=== PATIENT | male | born 1940 | race Two or more races ===

== ENCOUNTER 2019-01-22 23:47 | Inpatient (IN) | payer OTHER ==
[~2019-01-22] VITALS: Ht 180.3 cm; Wt 74.8 kg
[2019-01-23] MEDS ORDERED: FORTAMET500 MG (00:24)
[2019-01-23] MEDS ORDERED: ALDACTAZIDE 251 EACH (00:24)
[2019-01-23] MEDS ORDERED: AVAPRO75 MG (00:25)
--- NOTE | 2019-01-23 00:36 | NUR ---
SE RECIBE PTE ALERTA Y ORIENTADO POR MAYRA. PTE REFIERE PRESENTAR TOS,DIFICULTAD RESPIRATORIA Y DEBILIDAD DESDE LAS 6:00PM. SE OBSERVA A PTE CON RESPIRACIONES ABDOMINALES ACELERADAS, CON NIVELES DE AZUCAR HARESH, FIEBRE, Y B/P BAJA. SE LE RELIZA A PTE EKG Y SE LE PRESENTA A DR. MATTHEWS. SE COLOCA A PTE EN HIMANSHU CON BARANDAS ELEVADAS Y CONECTADO A MONITOR CARDIACO Y OXIMETRIA DE PULSO.
--- NOTE | 2019-01-23 01:00 | NUR ---
PACIENTE ALERTA Y ORIENTADO POR MAYRA ESFERAS. MS. ZHANG ORIENTA A PACIENTE SOBRE PROCEDIMEINTO Y TX, REFIERE ENTENDER. EXTRAE MUESTRAS DE LABORATOIRO CON MEDIDS ASEPTICAS Y ADMINISTRA MEDICAMENTOS ALISHA ORDEN MEDICA. SE NOTIFICA A MR. HILARIO ABG'S Y TERAPIAS RESPIRATORIA.
--- NOTE | 2019-01-23 05:00 | NUR ---
SE RECIBE PTE ALERTA Y ORIENTADO EN LAS 3 ESFERAS EN CAMA CON BARANDAS ELEVADAS POR SEGURIDAD A LA UNIDAD DE DOLOR DE PECHO. SE CONECTA A PTE EN MONITOR CARDIACO Y OXIMETRIA DE PULSO. ASISTIDO POR UN VENTURY AL 50%. IV'S 0.45NACL BAJANDO A 100ML/HR, DOPAMINA 400MCG/D5W 250ML BAJANDO A 5ML/HR Y TRIDIL 50MG/250ML BAJANDO A 1ML/HR POR VENOPUNCION EN BRAZO ZAHIRA, LAS CUALES SE ENCUENTRAN CARROLL DE EDEMA Y ERITEMA. SE REALIZA EKG Y SE PRENSENT A . SE MIDEN SIGNOS VITALES Y SE REPORTAN. SE JOSE ANTONIO A PTE EN CAMA CON BARANDAS ELEVADAS Y SE MANTIENE EN OBSERVACION POR CAMBIOS.
--- NOTE | 2019-01-23 08:19 | NUR ---
SE RECIBE PTE ALERTA Y ORIENTADO EN LAS 3 ESFERAS EN CAMA CON BARANDAS ELEVADAS POR SEGURIDAD A LA UNIDAD DE DOLOR DE PECHO. SE CONECTA A PTE EN MONITOR CARDIACO Y OXIMETRIA DE PULSO. ASISTIDO POR UN VENTURY AL 50%. IV'S 0.45NACL BAJANDO A 100ML/HR, DOPAMINA 400MCG/D5W 250ML BAJANDO A 5ML/HR Y TRIDIL 50MG/250ML BAJANDO A 1ML/HR POR VENOPUNCION EN BRAZO ZAHIRA, LAS CUALES SE ENCUENTRAN CARROLL DE EDEMA Y ERITEMA. SE MIDEN SIGNOS VITALES Y SE REPORTAN. SE JOSE ANTONIO A PTE EN CAMA CON BARANDAS ELEVADAS Y SE MANTIENE EN OBSERVACION POR CAMBIOS
== END 2019-02-05 14:09 | disposition designated cancer center or children's hospital (05) | DRG 280 ==
LOC: ER 23:47 → ICU-2 01-23 08:33 → ICU 01-26 22:23 → MEDJ 01-29 15:03 → MEDI 01-29 15:03 → MEDJ 02-01 11:52
PROVIDERS: ADMIT Student in an Organized Health Care Education/Training Program
PROC: 4A033R1 Measurement of Arterial Saturation, Peripheral, Percutaneous Approach (ICD-10-PCS; principal; 2019-01-23)
PROC: 3E0F7GC Introduction of Other Therapeutic Substance into Respiratory Tract, Via Natural or Artificial Opening (ICD-10-PCS; 2019-01-23)
PROC: B246ZZZ Ultrasonography of Right and Left Heart (ICD-10-PCS; 2019-01-23)
PROC: 0BH17EZ Insertion of Endotracheal Airway into Trachea, Via Natural or Artificial Opening (ICD-10-PCS; 2019-01-25)
PROC: 5A1945Z Respiratory Ventilation, 24-96 Consecutive Hours (ICD-10-PCS; 2019-01-25)
PROC: BT43ZZZ Ultrasonography of Bilateral Kidneys (ICD-10-PCS; 2019-01-27)
PROC: 4A12X4Z Monitoring of Cardiac Electrical Activity, External Approach (ICD-10-PCS; 2019-01-29)
PROC: 02HV33Z Insertion of Infusion Device into Superior Vena Cava, Percutaneous Approach (ICD-10-PCS; 2019-01-31)
PROC: 4A12XM4 Monitoring of Cardiac Stress, External Approach (ICD-10-PCS; 2019-02-01)
PROC: 3E033HZ Introduction of Radioactive Substance into Peripheral Vein, Percutaneous Approach (ICD-10-PCS; 2019-02-01)
DX: I21.4 Non-ST elevation (NSTEMI) myocardial infarction (principal); I50.23 Acute on chronic systolic (congestive) heart failure; J16.8 Pneumonia due to other specified infectious organisms; J96.01 Acute respiratory failure with hypoxia; R65.21 Severe sepsis with septic shock; N17.8 Other acute kidney failure; N39.0 Urinary tract infection, site not specified; I13.0 Hypertensive heart and chronic kidney disease with heart failure and stage 1 through stage 4 chronic kidney disease, or unspecified chronic kidney disease; E11.65 Type 2 diabetes mellitus with hyperglycemia; N18.9 Chronic kidney disease, unspecified; Z66 Do not resuscitate

== ENCOUNTER 2024-04-30 14:37 | Inpatient (IN) | payer OTHER ==
[~2024-04-30] VITALS: Ht 180.3 cm; Wt 73.5 kg
[~2024-04-30 14:37] MED LIST: ALDACTAZIDE 251 EACH; AVAPRO75 MG; FORTAMET500 MG
[2024-04-30] MEDS ORDERED: LEVOTHYROXINE25 MCG PO (15:39)
[2024-04-30] MEDS ORDERED: 0.9 % SODIUM CHLORIDE 500 ML IV ONE (19:15)
[2024-04-30 19:49] LABS: HEMATOCRIT 35.7 % (39.0-48.0); MEAN CELL VOLUME 89.1 fL (80.0-100.00); MEAN CORPUSCULAR HEMOGLOBIN 29.9 pg (27.00-32.0); MEAN CORPUSCULAR HGB CONC 33.5 g/dl (32.0-36.0); PLATELET COUNT 161 K/uL (150-450); RED BLOOD COUNT 4.01 M/uL (4.00-6.00); RED CELL DISTRIBUTION WIDTH 14.7 % (11.5-14.5)
[2024-04-30 20:08] LABS: ALBUMIN 2.9 gm/dL (3.4-5.0); BILIRUBIN TOTAL 0.91 mg/dL (0.3-1.2); CALCIUM 8.4 mg/dL (8.5-10.1); CREATININE SERUM 1.52 mg/dL (0.70-1.30); GFR 44.02; GLOBULINA 4.8 G/DL (2.4-3.5); POTASSIUM 3.81 mEq/L (3.5-5.1); TOTAL PROTEIN 7.7 gm/dL (6.4-8.2)
[2024-04-30 23:10] LABS: URINE APPEARANCE Clear; URINE BILIRRUBIN Negative (NEGATIVE); URINE BLOOD Trace; URINE COLOR Yellow; URINE LEUKOCYTE Negative; URINE NITRATE Negative; URINE PROTEIN Negative (NEGATIVE); URINE UROBILINOGEN 0.2 E.U./dl
[2024-04-30 23:11] LABS: URINE BACTERIA 32.7 uL (0.0-1933); URINE EPITHELIAL CELLS 8.6 uL (0.0-38.8); URINE RBC 6.5 uL (0.0-20.8); URINE WBC 8.8 uL (0.0-23.2)
[2024-04-30 23:13] LABS: URINE GLUCOSE >=1000 MG/DL (NEGATIVE)
[2024-05-01] MEDS ORDERED: CEFTRIAXONE SODIUM 2,000 MG VIAL IV ONE (01:15)
[2024-05-01] MEDS ORDERED: CEFTRIAXONE SODIUM 2,000 MG VIAL ONE (02:12)
[2024-05-01] MEDS ORDERED: CEFTRIAXONE SODIUM 2,000 MG in 0.9 % SODIUM CHLORIDE 100 ML IV SCH (16:09)
[2024-05-01] MEDS ORDERED: SODIUM CHLORIDE 0.45 % 1,000 ML IV SCH (16:15)
[2024-05-01] MEDS ORDERED: ATORVASTATIN CALCIUM 40 MG TABLET PO SCH (16:21)
[2024-05-01] MEDS ORDERED: ISOSORBIDE MONONITRATE 60 MG TABLET PO SCH (16:22)
[2024-05-01] MEDS ORDERED: FUROsemide 20 MG TABLET PO SCH (16:22)
[2024-05-01] MEDS ORDERED: TICAGRELOR 90 MG TABLET PO SCH (16:24)
[2024-05-01] MEDS ORDERED: INSULIN LISPRO 1,000 UNIT/10 ML UNITS SUBCUTANEO PRN (16:30)
[2024-05-01] MEDS ORDERED: DEXTROSE 50 % IN WATER 0.5 G/ML DISP.SYRIN IV PRN (16:30)
[2024-05-01] MEDS ORDERED: FAMOTIDINE/PF 20 MG in 0.9 % SODIUM CHLORIDE 100 ML IV SCH (17:00)
[2024-05-01 18:33] LABS: ABG PH 7.447 (7.35-7.45); ABG PO2 89.7 mmHg (80-100); ABG pCO2 32.2 mmHg (35-45); BASE EXCESS -1.4 mmol/l; BICARBONATE 21.7 mmol/l (23-25); SaO2 97.3 %; Tco2 22.7 mmol/l
[2024-05-01 18:34] LABS: allen test SATISFACTORY; o2 21 %; puncture site RADIAL RIGHT
[2024-05-01] MEDS ORDERED: FUROsemide 20 MG/2 ML VIAL ONE (19:20)
[2024-05-01] MEDS ORDERED: TICAGRELOR 90 MG TABLET PO ONE (19:20)
[2024-05-01] MEDS ORDERED: FAMOTIDINE/PF 20 MG/2 ML VIAL ONE (19:20)
[2024-05-01 19:41] LABS: INR 1.04; PARTIAL THROMBOPLASTIN TIME 28.5 SECONDS (22.0-34.0); PROTHROMBIN TIME 10.9 SECONDS (9.0-11.5)
[2024-05-01 19:48] LABS: BILIRUBIN TOTAL 0.77 mg/dL (0.3-1.2); BILIRUBIN,CONJUGATED 0.25 mg/dL (0.0-0.2); BILIRUBIN,UNCONJUGATED 0.52 mg/dL (0.0-0.6); CALCIUM 8.7 mg/dL (8.5-10.1); CREATININE SERUM 1.44 mg/dL (0.70-1.30); GFR 46.85; MAGNESIUM 2.2 mg/dL (1.8-2.4); PHOSPHOROUS 2.5 mg/dL (2.5-4.9); POTASSIUM 4.15 mEq/L (3.5-5.1)
[2024-05-01 20:39] LABS: C-REACTIVE PROTEIN 17.4 MG/DL (0.00-0.29); CKMB 7.6 NG/ML (0.5-3.6)
[2024-05-02] MEDS ORDERED: LEVOTHYROXINE SODIUM 25 MCG TABLET PO SCH (06:00)
[2024-05-02 09:38] LABS: HEMATOCRIT 40.6 % (39.0-48.0); HEMOGLOBIN 13.5 g/dL (13-16.00); MEAN CELL VOLUME 89.9 fL (80.0-100.00); MEAN CORPUSCULAR HEMOGLOBIN 29.9 pg (27.00-32.0); MEAN CORPUSCULAR HGB CONC 33.2 g/dl (32.0-36.0); PLATELET COUNT 62 K/uL (150-450); RED BLOOD COUNT 4.51 M/uL (4.00-6.00); RED CELL DISTRIBUTION WIDTH 14.6 % (11.5-14.5)
[2024-05-02 09:58] LABS: CALCIUM 8.1 mg/dL (8.5-10.1); CREATININE SERUM 1.05 mg/dL (0.70-1.30); GFR 67.45; POTASSIUM 4.42 mEq/L (3.5-5.1)
[2024-05-02] MEDS ORDERED: DEXTROSE 50 % IN WATER 0.5 G/ML VIAL IV PRN (17:15)
[2024-05-03 09:04] LABS: ABG PH 7.424 (7.35-7.45); ABG pCO2 32.6 mmHg (35-45); BASE EXCESS -2.6 mmol/l; BICARBONATE 20.8 mmol/l (23-25); SaO2 96.3 %; Tco2 21.8 mmol/l; allen test SATISFACTORY; o2 21 %; puncture site RADIAL LEFT
[2024-05-04 14:40] LABS: HEMATOCRIT 34.2 % (39.0-48.0); HEMOGLOBIN 11.7 g/dL (13-16.00); MEAN CELL VOLUME 87.3 fL (80.0-100.00); MEAN CORPUSCULAR HGB CONC 34.3 g/dl (32.0-36.0); PLATELET COUNT 161 K/uL (150-450); RED BLOOD COUNT 3.91 M/uL (4.00-6.00); RED CELL DISTRIBUTION WIDTH 14.3 % (11.5-14.5)
[2024-05-04 15:16] LABS: ALBUMIN 2.6 gm/dL (3.4-5.0); BILIRUBIN TOTAL 0.56 mg/dL (0.3-1.2); CALCIUM 7.7 mg/dL (8.5-10.1); CREATININE SERUM 1.26 mg/dL (0.70-1.30); GFR 54.66; GLOBULINA 4.3 G/DL (2.4-3.5); POTASSIUM 3.92 mEq/L (3.5-5.1); TOTAL PROTEIN 6.9 gm/dL (6.4-8.2)
[2024-05-04] MEDS ORDERED: FUROsemide 40 MG/4 ML VIAL IV STA (16:49)
[2024-05-04] MEDS ORDERED: IPRATROPIUM BROMIDE 0.5 MG/2.5 ML AMPUL.NEB IH SCH (17:00)
[2024-05-04] MEDS ORDERED: FAMOtidine 20 MG TABLET PO SCH (21:00)
[2024-05-05 07:43] LABS: HEMATOCRIT 32.3 % (39.0-48.0); HEMOGLOBIN 11.2 g/dL (13-16.00); MEAN CELL VOLUME 86.9 fL (80.0-100.00); MEAN CORPUSCULAR HGB CONC 34.5 g/dl (32.0-36.0); PLATELET COUNT 145 K/uL (150-450); RED BLOOD COUNT 3.72 M/uL (4.00-6.00); RED CELL DISTRIBUTION WIDTH 14.4 % (11.5-14.5)
[2024-05-05 08:30] LABS: ALBUMIN 2.4 gm/dL (3.4-5.0); BILIRUBIN TOTAL 0.48 mg/dL (0.3-1.2); CALCIUM 7.8 mg/dL (8.5-10.1); CREATININE SERUM 1.29 mg/dL (0.70-1.30); GFR 53.19; POTASSIUM 3.42 mEq/L (3.5-5.1); TOTAL PROTEIN 6.4 gm/dL (6.4-8.2)
[2024-05-05 10:39] LABS: ABG PH 7.445 (7.35-7.45); ABG PO2 107.7 mmHg (80-100); ABG pCO2 34.2 mmHg (35-45); BASE EXCESS -0.4 mmol/l; BICARBONATE 22.9 mmol/l (23-25); SaO2 98.4 %
[2024-05-05 10:40] LABS: allen test SATISFACTORY; o2 32 %; puncture site RADIAL RIGHT
[2024-05-05] MEDS ORDERED: FUROsemide 40 MG/4 ML VIAL IV SCH (17:00)
[2024-05-06] MEDS ORDERED: IPRATROPIUM BROMIDE 0.5 MG/2.5 ML AMPUL.NEB IH SCH (12:00)
[2024-05-08] MEDS ORDERED: MEROPENEM 500 MG/VIAL VIAL IV SCH (13:00)
[2024-05-08] MEDS ORDERED: VANCOMYCIN HCL 1,000 MG VIAL IV SCH (13:03)
[2024-05-08 21:14] LABS: HEMATOCRIT 32.5 % (39.0-48.0); HEMOGLOBIN 10.9 g/dL (13-16.00); MEAN CELL VOLUME 88.1 fL (80.0-100.00); MEAN CORPUSCULAR HEMOGLOBIN 29.7 pg (27.00-32.0); MEAN CORPUSCULAR HGB CONC 33.7 g/dl (32.0-36.0); PLATELET COUNT 155 K/uL (150-450); RED BLOOD COUNT 3.69 M/uL (4.00-6.00); RED CELL DISTRIBUTION WIDTH 14.5 % (11.5-14.5)
[2024-05-08 21:36] LABS: ALBUMIN 2.1 gm/dL (3.4-5.0); BILIRUBIN TOTAL 0.5 mg/dL (0.3-1.2); CALCIUM 7.7 mg/dL (8.5-10.1); CREATININE SERUM 1.39 mg/dL (0.70-1.30); GFR 48.8; POTASSIUM 3.92 mEq/L (3.5-5.1); TOTAL PROTEIN 6.1 gm/dL (6.4-8.2)
[2024-05-09 16:00] LABS: ABG PH 7.256 (7.35-7.45)
[2024-05-09 16:01] LABS: ABG PO2 100.5 mmHg (80-100); ABG pCO2 50.3 mmHg (35-45); BASE EXCESS -5.6 mmol/l; BICARBONATE 21.9 mmol/l (23-25); SaO2 96.3 %; Tco2 23.4 mmol/l; allen test SATISFACTORY; o2 50 %; puncture site RADIAL RIGHT
[2024-05-09] MEDS ORDERED: METHYLPREDNISOLONE SOD SUCC 40 MG VIAL IV SCH (17:00)
[2024-05-09] MEDS ORDERED: LEVALBUTEROL HCL 0.63 MG/3 ML SOLUTION IH SCH (17:00)
[2024-05-09 19:21] LABS: ABG PH 7.311 (7.35-7.45); ABG PO2 139.1 mmHg (80-100); ABG pCO2 46.8 mmHg (35-45); BASE EXCESS -3.4 mmol/l; BICARBONATE 23.1 mmol/l (23-25); SaO2 98.8 %; Tco2 24.5 mmol/l
[2024-05-09 19:22] LABS: allen test SATISFACTORY; o2 50 %; puncture site RADIAL RIGHT
[2024-05-09] MEDS ORDERED: FUROsemide 20 MG/2 ML VIAL IV SCH (21:00)
[2024-05-10 09:53] LABS: ABG PH 7.352 (7.35-7.45); ABG PO2 279.9 mmHg (80-100); ABG pCO2 39.3 mmHg (35-45); BASE EXCESS -3.9 mmol/l; BICARBONATE 21.3 mmol/l (23-25); SaO2 99.9 %; Tco2 22.5 mmol/l
[2024-05-10 11:49] LABS: o2 50 %
[2024-05-10 11:50] LABS: allen test SATISFACTORY; puncture site RADIAL RIGHT
[2024-05-10] MEDS ORDERED: MEROPENEM 500 MG/VIAL VIAL IV SCH (17:00)
[2024-05-10] MEDS ORDERED: FLUCONAZOLE IN NACL,ISO-OSM 100 ML IV SCH (17:00)
[2024-05-11 07:41] LABS: HEMATOCRIT 35.9 % (39.0-48.0); MEAN CELL VOLUME 87.5 fL (80.0-100.00); MEAN CORPUSCULAR HEMOGLOBIN 29.2 pg (27.00-32.0); MEAN CORPUSCULAR HGB CONC 33.4 g/dl (32.0-36.0); PLATELET COUNT 242 K/uL (150-450); RED CELL DISTRIBUTION WIDTH 14.9 % (11.5-14.5)
[2024-05-11 08:09] LABS: BILIRUBIN TOTAL 0.72 mg/dL (0.3-1.2); CALCIUM 8.2 mg/dL (8.5-10.1); CREATININE SERUM 1.86 mg/dL (0.70-1.30); GFR 34.87; GLOBULINA 4.5 G/DL (2.4-3.5); POTASSIUM 4.63 mEq/L (3.5-5.1); TOTAL PROTEIN 6.5 gm/dL (6.4-8.2)
[2024-05-11 11:15] LABS: ABG PH 7.373 (7.35-7.45); BICARBONATE 20.5 mmol/l (23-25); SaO2 99.6 %; Tco2 21.6 mmol/l
[2024-05-11 11:16] LABS: allen test SATISFACTORY; o2 50 %; puncture site RADIAL RIGHT
[2024-05-12 08:28] LABS: ABG PH 7.424 (7.35-7.45); ABG pCO2 36.9 mmHg (35-45); BASE EXCESS -0.3 mmol/l; BICARBONATE 23.6 mmol/l (23-25); SaO2 98.6 %; Tco2 24.8 mmol/l
[2024-05-12 08:46] LABS: allen test SATISFACTORY; o2 35 %; puncture site RADIAL RIGHT
[2024-05-12 15:20] LABS: CALCIUM 7.6 mg/dL (8.5-10.1); CHOL HDL RATIO 2.7 (0-5.0); CREATININE SERUM 1.73 mg/dL (0.70-1.30); GFR 37.91; POTASSIUM 3.75 mEq/L (3.5-5.1)
[2024-05-12] MEDS ORDERED: AMINO ACIDS 4.25 %/DEXTROSE 5% 1,000 ML PERIFERAL SCH (17:00)
[2024-05-13] MEDS ORDERED: FAMOtidine 20 MG TABLET PO SCH (09:00)
[2024-05-13 11:23] LABS: ABG PH 7.364 (7.35-7.45); ABG PO2 90.4 mmHg (80-100); ABG pCO2 41.8 mmHg (35-45); BICARBONATE 23.3 mmol/l (23-25); SaO2 96.5 %; Tco2 24.6 mmol/l
[2024-05-13 11:24] LABS: allen test SATISFACTORY; o2 31 %; puncture site RADIAL LEFT
[2024-05-13] MEDS ORDERED: DEXTROSE 50 % IN WATER 0.5 G/ML DISP.SYRIN IV PRN (11:30)
[2024-05-14] MEDS ORDERED: METHYLPREDNISOLONE SOD SUCC 40 MG VIAL IV SCH (09:00)
[2024-05-14 10:38] LABS: ABG PH 7.291 (7.35-7.45); BASE EXCESS -4.6 mmol/l; BICARBONATE 22.6 mmol/l (23-25); SaO2 88.8 %; Tco2 24.1 mmol/l
[2024-05-14 10:39] LABS: allen test SATISFACTORY; o2 40 %; puncture site RADIAL RIGHT
[2024-05-14] MEDS ORDERED: FAMOTIDINE/PF 20 MG/2 ML VIAL IV SCH (17:00)
[2024-05-15 09:29] LABS: ABG PH 7.183 (7.35-7.45); ABG PO2 85.9 mmHg (80-100); ABG pCO2 55.9 mmHg (35-45); BASE EXCESS -8.3 mmol/l; BICARBONATE 20.6 mmol/l (23-25); SaO2 92.7 %; Tco2 22.3 mmol/l
[2024-05-15 09:30] LABS: allen test SATISFACTORY; o2 31 %; puncture site RADIAL LEFT
[2024-05-15 10:32] LABS: HEMOGLOBIN 10.2 g/dL (13-16.00); MEAN CELL VOLUME 88.8 fL (80.0-100.00); MEAN CORPUSCULAR HEMOGLOBIN 28.4 pg (27.00-32.0); PLATELET COUNT 269 K/uL (150-450); RED CELL DISTRIBUTION WIDTH 15.4 % (11.5-14.5)
[2024-05-15 11:23] LABS: BILIRUBIN TOTAL 0.76 mg/dL (0.3-1.2); CALCIUM 7.5 mg/dL (8.5-10.1); CREATININE SERUM 2.02 mg/dL (0.70-1.30); GFR 31.7; GLOBULINA 3.9 G/DL (2.4-3.5); POTASSIUM 4.56 mEq/L (3.5-5.1); TOTAL PROTEIN 5.9 gm/dL (6.4-8.2)
[2024-05-16 09:01] LABS: ABG PH 7.236 (7.35-7.45)
[2024-05-16 09:02] LABS: ABG PO2 98.1 mmHg (80-100); ABG pCO2 52.1 mmHg (35-45); BASE EXCESS -6.3 mmol/l; BICARBONATE 21.6 mmol/l (23-25); SaO2 95.7 %
[2024-05-16 09:03] LABS: Tco2 23.2 mmol/l; allen test SATISFACTORY; o2 50 %; puncture site RADIAL RIGHT
[2024-05-16] MEDS ORDERED: MEROPENEM 500 MG/VIAL VIAL IV SCH (21:00)
[2024-05-17 10:19] LABS: ABG PH 7.293 (7.35-7.45); ABG PO2 104.7 mmHg (80-100); ABG pCO2 43.3 mmHg (35-45); BASE EXCESS -5.9 mmol/l; BICARBONATE 20.5 mmol/l (23-25)
[2024-05-17 10:20] LABS: Tco2 21.8 mmol/l; allen test SATISFACTORY; o2 50 %; puncture site RADIAL RIGHT
[2024-05-18 07:17] LABS: T4 TOTAL 2.35 UG/DL (4.5-12.1); TSH 3.1 uIU/mL (0.358-3.74)
[2024-05-18 09:34] LABS: ABG PH 7.307 (7.35-7.45); ABG PO2 144.6 mmHg (80-100); ABG pCO2 43.4 mmHg (35-45); BICARBONATE 21.2 mmol/l (23-25); SaO2 98.9 %; Tco2 22.5 mmol/l
[2024-05-18 09:35] LABS: allen test SATISFACTORY; o2 50 %; puncture site RADIAL LEFT
[2024-05-18] MEDS ORDERED: MORPHINE SULFATE 4 MG/ML VIAL IV SCH (17:45)
[2024-05-18] MEDS ORDERED: MORPHINE SULFATE 48 MG,MORPHINE SULFATE 2 MG in 0.9 % SODIUM CHLORIDE 50 ML IV SCH (18:45)
== END 2024-05-19 07:53 | disposition expired | DRG 682 ==
LOC: ER 14:37 → SEC-K 05-01 16:40 → SURH 05-01 16:40 → ICU 05-11 21:14
PROVIDERS: General Practice; Internal Medicine; Internal Medicine Endocrinology, Diabetes & Metabolism; Internal Medicine Pulmonary Disease; Nurse Practitioner Family; Student in an Organized Health Care Education/Training Program; ADMIT Internal Medicine; ATTEND Internal Medicine
PROC: BW24ZZZ Computerized Tomography (CT Scan) of Chest and Abdomen (ICD-10-PCS; principal; 2024-05-01)
PROC: 02HV33Z Insertion of Infusion Device into Superior Vena Cava, Percutaneous Approach (ICD-10-PCS; 2024-05-12)
PROC: B24BZZZ Ultrasonography of Heart with Aorta (ICD-10-PCS; 2024-05-14)
DX: N17.9 Acute kidney failure, unspecified (principal); A41.9 Sepsis, unspecified organism; J18.9 Pneumonia, unspecified organism; J96.01 Acute respiratory failure with hypoxia; I50.20 Unspecified systolic (congestive) heart failure; I13.0 Hypertensive heart and chronic kidney disease with heart failure and stage 1 through stage 4 chronic kidney disease, or unspecified chronic kidney disease; E86.0 Dehydration; I25.10 Atherosclerotic heart disease of native coronary artery without angina pectoris; E03.9 Hypothyroidism, unspecified; Z79.4 Long term (current) use of insulin; E11.65 Type 2 diabetes mellitus with hyperglycemia; N18.9 Chronic kidney disease, unspecified